=== PATIENT | male | born 1995 | race Caucasian/White ===

== ENCOUNTER 2017-10-23 10:30 | Emergency (ER) | payer OTHER ==
[2017-10-23 10:48] VITALS: TEMP 98.6
--- NOTE | 2017-10-23 10:58 | C.PDOC ---
History Of Present Illness 22M c/o productive cough, intermittent chest pain, congestion, sore throat, headache, vomiting since yesterday. denies any pmh, drugs, etoh, smoking. no vomiting today. no headache currently. Time Seen by Provider: 10/23/17 10:50 Chief Complaint (Nursing): Cough, Cold, Congestion Past Medical History Vital Signs: Last Vital Signs Temp 98.6 F 10/23/17 10:46 Pulse 70 10/23/17 10:46 Resp 16 10/23/17 10:46 BP 131/75 10/23/17 10:46 Pulse Ox 99 10/23/17 11:01 Family History: States: Other Other Family History: nc - Social History Hx Tobacco Use: No Hx Alcohol Use: No Hx Substance Use: No - Immunization History Hx Tetanus Toxoid Vaccination: No Hx Influenza Vaccination: Yes Hx Pneumococcal Vaccination: No Review Of Systems Constitutional: Positive for: Malaise. Negative for: Fever, Chills Cardiovascular: Positive for: Chest Pain Respiratory: Positive for: Cough. Negative for: Shortness of Breath, Hemoptysis Gastrointestinal: Positive for: Nausea, Vomiting. Negative for: Abdominal Pain , Diarrhea Physical Exam - Physical Exam Appears: Well, Non-toxic, No Acute Distress Skin: Warm, Dry Eye(s): bilateral: PERRL, EOMI Nose: No Epistaxis Oral Mucosa: Moist Tongue: No Swelling Lips: No Swelling Throat: No Erythema, No Exudate, No Drooling, No Mass Neck: Normal ROM, Supple Cardiovascular: Rhythm Regular Respiratory: No Decreased Breath Sounds, No Accessory Muscle Use, No Rales, No Rhonchi, No Stridor, No Wheezing Gastrointestinal/Abdominal: Soft, No Tenderness Neurological/Psych: Oriented x3, Normal Motor, Normal Sensation, Other (no focal deficits) Gait: Steady ED Course And Treatment O2 Sat by Pulse Oximetry: 99 Medical Decision Making Medical Decision Making: cxr- nad ecg- sinus tor 56, nl axis, no acute ischemia Disposition - Disposition Disposition: HOME/ ROUTINE Disposition Time: 11:34 Condition: GOOD Forms: [facility] (Spanish) - Clinical Impression Clinical Impression: Influenza-like illness
[2017-10-23 11:55] VITALS: BP 124/75; PULSE 65; RESP 17; O2SAT 98
--- NOTE | 2017-10-23 12:51 | RAD ---
HISTORY: cp COMPARISON: GoNo prior. TECHNIQUE: Chest PA and lateral FINDINGS: LUNGS: No active pulmonary disease. PLEURA: No significant pleural effusion identified. No pneumothorax apparent. CARDIOVASCULAR: Normal. OSSEOUS STRUCTURES: No significant abnormalities. VISUALIZED UPPER ABDOMEN: Normal. OTHER FINDINGS: None. IMPRESSION: No active disease.
--- NOTE | 2017-10-24 17:57 | CARD ---
APPROVED REPORT EKG Measurement Heart [id number] <Conclusion> Sinus bradycardia with sinus arrhythmia Otherwise normal ECG
== END 2017-10-23 11:58 | disposition home or self-care (01) ==
LOC: C.ER 10:30
DX: J11.1 Influenza due to unidentified influenza virus with other respiratory manifestations (principal)